=== PATIENT | female | born 1990 | race American Indian/Alaskan Native ===

== ENCOUNTER 2019-04-08 12:08 | Emergency (ER) | payer BC ==
--- NOTE | 2019-04-08 12:19 | Event Note ---
ED Screening Note Date of service: 04/08/19 Time: 12:15 ED Screening Note: This is a 28 y.o. F. that presents to the ER with LLE swelling for 1 day. Patient recently traveled home from [place] via car this morning. This initial assessment/diagnostic orders/clinical plan/treatment(s) is/are subject to change based on patients health status, clinical progression and re- assessment by fellow clinical providers in the ED. Further treatment and workup at subsequent clinical providers discretion. Patient/guardian urged not to elope from the ED as their condition may be serious if not clinically assessed and managed. Initial orders include: doppler LLE
--- NOTE | 2019-04-08 13:48 | Vascular Lab Report ---
PROCEDURE: VL VENOUS DUPLEX LE LT TECHNIQUE: Grayscale and color and spectral doppler ultrasound imaging of the left lower extremity v enous system was performed. HISTORY: r/o dvt COMPARISONS: None. FINDINGS: There is normal compression and color flow within the left lower extremity venous system. Normal augm entation was seen. IMPRESSION: No evidence of deep venous thrombosis. This document is electronically signed by Selene Rogel., April 08 2019 01:45:15 PM ET
--- NOTE | 2019-04-08 13:54 | Emergency Department Report ---
ED Extremity Problem HPI - General Chief complaint: Extremity Injury, Lower Stated complaint: SWOLLEN FEET Time Seen by Provider: 04/08/19 12:15 Source: patient Mode of arrival: Ambulatory Limitations: No Limitations - Related Data Allergies Allergy/AdvReac Type Severity Reaction Status Date / Time No Known Allergies Allergy Unverified 04/08/19 12:08 ED Review of Systems ROS: Stated complaint: SWOLLEN FEET Other details as noted in HPI ED Past Medical Hx - Past Medical History Previous Medical History?: No - Surgical History Past Surgical History?: No - Social History Smoking Status: Never Smoker ED Physical Exam - General Limitations: No Limitations General appearance: alert, in no apparent distress - Head Head exam: Present: atraumatic, normocephalic - Eye Eye exam: Present: normal appearance - ENT ENT exam: Present: mucous membranes moist - Extremities Exam Extremities exam: Present: pedal edema (trace edema left foot) - Back Exam Back exam: Present: normal inspection - Neurological Exam Neurological exam: Present: alert, oriented X3 - Psychiatric Psychiatric exam: Present: normal affect, normal mood - Skin Skin exam: Present: warm, dry, intact, normal color. Absent: rash ED Course Vital Signs 04/08/19 12:15 Temperature 98.2 F Pulse Rate 77 Respiratory 18 Rate Blood Pressure 124/85 O2 Sat by Pulse 98 Oximetry ED Medical Decision Making - Medical Decision Making Patient has been evaluated by this provider at [facility]. Patient is a 28-year-old comes in with bilateral ankle edema. Discussed with patient this is most likely due to positioning of her legs dangling while driving as well as i ncreased sodium intake. Discussed the patient avoids sodium as much as possible initially that she walks to move fluid in her legs. Follow up with her primary care provider C has any further concerns. Critical care attestation.: If time is entered above; I have spent that time in minutes in the direct care of this critically ill patient, excluding procedure time. ED Disposition Clinical Impression: Trace edema Disposition: DC-01 TO HOME OR SELFCARE Is pt being admited?: No Does the pt Need Aspirin: No Condition: Stable Instructions: Low Sodium Diet (ED) Additional Instructions: Please decrease her sodium intake. Follow-up with her primary care provider Referrals: Your,Provider [Other] - 3-5 Days [facility] [Outside] - 3-5 Days [facility] [Outside] - 3-5 Days
[2019-04-08 15:29] VITALS: BP 116/67
== END 2019-04-08 15:25 | disposition home or self-care (01) ==
LOC: ED 12:08
DX: R60.9 Edema, unspecified (principal)
CPT/HCPCS: 99283